=== PATIENT | male | born 1980 | race Asian ===

== ENCOUNTER 2023-03-21 12:34 | Emergency (ER) | payer OTHER ==
[2023-03-21] MEDS ORDERED: MECLIZINE HCL 25 MG TABLET (FP) PO ONE (12:53)
[2023-03-21 13:02] VITALS: BP 142/93; PULSE 83; RESP 16; TEMP 97.8; BMI 24.3
[2023-03-21] MEDS ORDERED: MECLIZINE HCL 25 MG TABLET (FP) ONE (13:08)
== END 2023-03-21 15:16 | disposition home or self-care (01) ==
LOC: FER 12:34
DX: R42 Dizziness and giddiness (principal)
CPT/HCPCS: 70450-TC; 82962; 99284-25